=== PATIENT | male | born 1945 | race Caucasian/White ===

== ENCOUNTER 2017-06-23 09:15 | Day surgery (SDC) | payer MEDICARE, BC ==
[2017-06-23] MEDS ORDERED: Sodium Chloride 0.9% 1,000 ML IV SCH (09:45)
[2017-06-23] MEDS ORDERED: ceFAZolin 2 GM in Premix Bag 1 BAG IV ONE (10:30)
[2017-06-23] MEDS ORDERED: metroNIDAZOLE/Normal Saline 500 MG in Premix Bag 1 BAG IV ONE (10:30)
[2017-06-23] MEDS ORDERED: fentaNYL 100 MCG/2 ML SDV ONE (10:50)
[2017-06-23] MEDS ORDERED: Midazolam 1 MG/ML 2 ML SDV ONE (10:50)
[2017-06-23] MEDS ORDERED: Lidocaine 1% with EPINEPHrine 1:100,000 50 ML MDV INJECT ONE ×2 (11:32)
[2017-06-23] MEDS ORDERED: Bupivacaine 0.5% 50 ML MDV INJECT ONE ×2 (11:33)
[2017-06-23] MEDS ORDERED: Propofol 200 MG/20 ML SDV ONE (11:45)
[2017-06-23] MEDS ORDERED: Ketorolac 60 MG/2 ML SDV ONE (11:57)
[2017-06-23] MEDS ORDERED: Lactated Ringers 1,000 ML ONE (12:06)
[2017-06-23] MEDS ORDERED: Acetaminophen/HYDROcodone 325-5 MG Tab PO PRN (13:14)
[2017-06-23 13:29] VITALS: BP 111/48
--- NOTE | 2017-06-24 09:44 | OR ---
DATE OF PROCEDURE: 06/23/2017 PROCEDURES PERFORMED: Repair of right inguinal hernia, incarcerated, recurrent, and non- strangulated. COMPLICATIONS: None. ASSISTANTS: None. ANESTHESIA: MAC/local. INDICATIONS: This is a pleasant 71-year-old male with a recurrent incarcerated hernia requiring repair. Risks, benefits, alternatives, and limitations including but not limited to infection, bleeding, injury to the abdominal structures, injury to the testicle, vas deferens, chronic wound formation, and chronic pain formation were all described, and the patient wished to proceed. PROCEDURE IN DETAIL: The patient was placed in a supine position. A curvilinear incision was made medial and superior to the inguinal ligaments. This was carried down with electrocautery to the external oblique aponeurosis. This was opened sharply with a 15-blade. Metzenbaum scissors was used to extend this inferomedially and superolaterally. These were then clamped with Brigida clamps and subsequently transected. Using a finger sweep technique, the cord structures and hernia were mobilized freely. This was noted to have adhesions associated with previous abdominal hernia repair. This was able then to be reflected back into the abdomen. An extra-large plug and patch system was then sutured into place with interrupted sutures. The external oblique aponeurosis was then approximated. Subcutaneous tissues were irrigated and closed with 3-0 Vicryl. The skin was closed with 4-0 Vicryl. Local anesthetic was applied. The patient tolerated the procedure well. Jules Cummings MD /[id number]
== END 2017-06-23 13:51 | disposition home or self-care (01) ==
LOC: JP.SDS 09:15
PROVIDERS: ATTEND Surgery
DX: K40.31 Unilateral inguinal hernia, with obstruction, without gangrene, recurrent (principal); I10 Essential (primary) hypertension; E78.5 Hyperlipidemia, unspecified; E55.9 Vitamin D deficiency, unspecified; Z98.890 Other specified postprocedural states; Z87.891 Personal history of nicotine dependence; N28.9 Disorder of kidney and ureter, unspecified
CPT/HCPCS: 49521; A9270; C1781; J0690; J1885; J2250; J2704; J3010; J7040; J7120; J3490

== ENCOUNTER 2020-08-01 08:51 | Day surgery (SDC) | payer MEDICARE, BC ==
[~2020-08-01 08:51] MED LIST: Propofol 200 MG/20 ML SDV ONE; fentaNYL 100 MCG/2 ML SDV ONE
[2020-08-01] MEDS ORDERED: Sodium Chloride 0.9% 1,000 ML IV SCH (09:30)
[2020-08-01 10:50] VITALS: BP 115/67; PULSE 72
--- NOTE | 2020-08-04 10:22 | OR ---
DATE OF PROCEDURE: 08/01/2020 SURGEON: Jules Cummings MD PROCEDURE: Colonoscopy. FINDINGS: Normal colonoscopy. COMPLICATIONS: None. ACCOUNTING ADVISORY SERVICES MANAGER: None. ANESTHESIA: MAC. PREOPERATIVE DIAGNOSIS: Screening colonoscopy. POSTOPERATIVE DIAGNOSIS: Screening colonoscopy. RISKS: Risks, benefits, alternatives, and limitations including, but not limited to infection, bleeding, and perforation were explained to the patient, who wished to proceed. PROCEDURE IN DETAIL: The patient was placed in left lateral decubitus position. Digital rectal exam was performed without abnormality. Scope was introduced and advanced atraumatically to the ileocecal valve. Scope was brought back to the ascending, transverse, descending colon, and retroflexed. No old or new blood. No masses. No polyps. No diverticulosis. No colitis. No abnormalities on retroflexion. The patient tolerated the procedure well. Jules Cummings MD /[id number]
== END 2020-08-01 11:03 | disposition home or self-care (01) ==
LOC: JP.SDS 08:51
PROVIDERS: ATTEND Surgery
DX: Z12.11 Encounter for screening for malignant neoplasm of colon (principal); I10 Essential (primary) hypertension; E03.9 Hypothyroidism, unspecified
CPT/HCPCS: G0121; J2704; J3010; J7030